=== PATIENT | female | born 1975 | race Caucasian/White ===

== ENCOUNTER 2016-07-18 15:40 | Emergency (ER) | payer BC ==
[2016-07-18 15:43] VITALS: BP 120/81; BMI 22.8
--- NOTE | 2016-07-18 15:56 | ED.ABDFE ---
HPI - Time seen Time seen: 15:45 - PCP Primary Care Physician: MICHELLE ORLANDO - HPI Comment HPI Comment: HISTORY KIDNEY STONE. PAIN GETTING WORSE. - Complaint Chief Complaint Doctors Comments: LEFT FLANK PAIN TIMES HOURS. Chief Complaint:: LEFT FLANK PAIN, POSSIBLE KIDNEY STONE, N/V - Nurses notes reviewed Nurses Notes Review: Yes - Source History Provided: Patient - Mode of arrival Mode of Arrival: Ambulatory - Timing Onset of Chief Complaint: 07/18/16 Came on: Suddenly - Duration Duration: Constant Duration: Days - Severity Severity: Moderate - Quality Quality: Sharp - Context Onset: Suddenly History of: Urolithiasis - Modifying Worsening Factors: Nothing Improving Factors: Nothing - Associated signs and symptoms Associated Signs and Symptoms: Nausea, Vomiting, Hematuria PMH - PMH Past Medical History: Yes Past Medical History: Kidney Stones Past Surgical History: Yes Surgical History: Hysterectomy, Other Past Surgical History Comment: BREAST IMPLANTS - Family History History of Family Medical Conditions: No - Social History Does patient currently use any type of tobacco product: No Have you used tobacco products in the last 12 months: No Type of Tobacco Use: None Does any household member use tobacco: No Alcohol Use: None Do you use any recreational Drugs:: No Lives With: Family Lives Where: Home - infectious screening In the last 2 months have you had wt loss of >10#?: NO Have you had fever, night sweats or hemotysis?: No Have you traveled outside the country in the last 6 months?: No Isolation: Standard ROS - Review of Systems Constitutional: No Symptoms Reported Eyes: No Symptoms Reported ENTM: No Symptoms Reported Respiratoy: No Symptoms Reported Cardiovascular: No Symptoms Reported Gastrointestinal/Abdominal: Abdominal Pain, Nausea, Vomiting Genitourinary: No Symptoms Reported Neurological: No Symptoms Reported Musculoskeletal: Back Pain, Back, Other (LT FLANK PAIN) Integumentary: No Symptoms Reported Hematologic/Lymphatic: No Symptoms Reported Endocrine: No Symptoms Reported All Other Systems: Reviewed and Negative PE - Vital Signs Vitals: Temperature 98.2 F Pulse Rate 87 Respiratory Rate 20 Blood Pressure 120/81 O2 Sat by Pulse Oximetry 99 - General Limitations: No Limitations General Appearance: In No Apparent Distress - Head Head Exam: Normal Inspection - Eyes Eye exam: Normal Appearance - ENT ENT Exam: Normal External Ear Exam - Neck Neck Exam: Normal Inspection - Chest Chest Inspection: Symmetric Chest Wall Rise - Respiratory Respiratory Exam: Normal Lung Sounds Bilat Respiratory Exam: Bilateral Clear to Auscultation - Cardiovascular Cardiovascular Exam: Regular Rate, Normal Rhythm, Normal Heart Sounds - Abdominal Exam Abdominal Exam: Normal Bowel Sounds, Soft, Tenderness - Rectal Rectal Exam: Deferred - Back Back Exam: (L) CVA Tenderness - Extremeties Extremities Exam: Normal Inspection - External Exam: Female: Deferred : Bimanual Exam (female): Normal Bimanual exam - Neurologic Neurological Exam: Alert, Oriented X3 - Psychiatric Psychiatric Exam: Normal Affect, Normal Mood - Skin Skin Exam: Normal Color MDM - Differential Diagnosis Differential Diagnosis- Considerations may include:: Gastritus/PUD, Ovarian cyst /torsion, Urinary obstruction, Urinary tract infection, Urolithiasis Course - Treatment Treatment: SEE ORDERS. PAIN IMPROVE WITH MEDS. - Education/Counseling Education/Counseling: Patient, Education Educated On: Treatment, Diagnosis, Needs for Follow Up ROR - Labs Reviewed Laboratory Results Reviewed?: Yes Result Diagrams: 07/18/16 16:06 07/18/16 16:06 Laboratory: WBC 13.7 X10^3/uL (3.6-10.0) H 07/18/16 16:06 RBC 5.04 X10^6/uL (3.5-5.4) 07/18/16 16:06 Hgb 14.3 g/dL (12.0-16.0) 07/18/16 16:06 Hct 41.9 % (36.0-47.0) 07/18/16 16:06 MCV 83.1 fL (80.0-100.0) 07/18/16 16:06 MCH 28.4 pg (27.0-34.0) 07/18/16 16:06 MCHC 34.2 g/dL (33.0-35.0) 07/18/16 16:06 RDW 12.7 % (11.6-16.5) 07/18/16 16:06 Plt Count 305 X10^3/uL (150.0-450.0) 07/18/16 16:06 Plt Count Comment Adequate (ADEQUATE) 07/18/16 16:06 MPV 8.5 fL (7.4-11.0) 07/18/16 16:06 Neut % 90.5 % (42.0-75.0) H 07/18/16 16:06 Lymph % 6.2 % (21.0-51.0) L 07/18/16 16:06 [place] % 3.0 % (0.0-13.0) 07/18/16 16:06 Eos % 0.1 % (0.9-2.9) L 07/18/16 16:06 Baso % 0.2 % (0.2-1.0) 07/18/16 16:06 Neut # 12.4 x10^3/uL (2.2-4.8) H 07/18/16 16:06 Lymph # 0.9 X10^3/uL (1.3-2.9) L 07/18/16 16:06 [place] # 0.4 x10^3/uL (0.3-0.8) 07/18/16 16:06 Eos # 0.0 x10^3/uL (0.0-0.2) 07/18/16 16:06 Baso # 0.0 X10^3/uL (0.0-0.1) 07/18/16 16:06 Absolute Nucleated RBC 0.0 /100WBC 07/18/16 16:06 Total Counted 100 07/18/16 16:06 Neutrophils % (Manual) 90 % (39-76) H 07/18/16 16:06 Band Neutrophils % 3 % (0-10) 07/18/16 16:06 Lymphocytes % (Manual) 5 % (13-43) L 07/18/16 16:06 Monocytes % (Manual) 2 % (4-9) L 07/18/16 16:06 Plt Morphology Comment Normal (NORMAL) 07/18/16 16:06 RBC Morphology Normal (NORMAL) 07/18/16 16:06 Sodium 142 mmol/L (136-145) 07/18/16 16:06 Corrected Sodium 143 mmol/L (136-145) 07/18/16 16:06 Potassium 4.3 mmol/L (3.5-5.1) 07/18/16 16:06 Chloride 105 mmol/L (98-107) 07/18/16 16:06 Carbon Dioxide 27.7 mmol/L (21-32) 07/18/16 16:06 BUN 11 mg/dL (7-18) 07/18/16 16:06 Creatinine 0.94 mg/dL (0.55-1.02) 07/18/16 16:06 Est GFR (MDRD) Af Amer > 60 (>60) 07/18/16 16:06 Est GFR (MDRD) Non-Af > 60 (>60) 07/18/16 16:06 Glucose 147 mg/dL (65-99) H 07/18/16 16:06 Calcium 9.3 mg/dL (8.5-10.1) 07/18/16 16:06 Corrected Calcium TNP 07/18/16 16:06 Total Bilirubin 0.20 mg/dL (0.2-1.0) 07/18/16 16:06 AST 18 Units/L (15-37) 07/18/16 16:06 ALT 31 Units/L (12-78) 07/18/16 16:06 Alkaline Phosphatase 93 Units/L (46-116) 07/18/16 16:06 Total Protein 8.0 g/dL (6.4-8.2) 07/18/16 16:06 Albumin 3.7 g/dL (3.4-5.0) 07/18/16 16:06 Globulin 4.3 g/dL (2.5-4.5) 07/18/16 16:06 Albumin/Globulin Ratio 0.9 Ratio (1.1-2.1) L 07/18/16 16:06 Specimen Type Clean catch urine 07/18/16 16:00 Urine Color Dark yellow (YELLOW) 07/18/16 16:00 Urine Appearance Slightly hazy (CLEAR) 07/18/16 16:00 Urine pH 7.0 (5.0 - 8.0) 07/18/16 16:00 Ur Specific [employer] 1.010 (1.000-1.030) 07/18/16 16:00 Urine Protein 1+ (NEGATIVE) 07/18/16 16:00 Urine Glucose (UA) Negative (NEGATIVE) 07/18/16 16:00 Urine Ketones Negative (NEGATIVE) 07/18/16 16:00 Urine Occult Blood 5+ (NEGATIVE) 07/18/16 16:00 Urine Nitrite Negative (NEGATIVE) 07/18/16 16:00 Urine Bilirubin Negative (NEGATIVE) 07/18/16 16:00 Urine Urobilinogen Normal (NORMAL) 07/18/16 16:00 Ur Leukocyte Esterase Negative (NEGATIVE) 07/18/16 16:00 Urine RBC Tntc /HPF (NEGATIVE) 07/18/16 16:00 Urine WBC 0-1 /HPF (NEGATIVE) 07/18/16 16:00 Ur Squamous Epith Cells Rare /HPF (NEGATIVE) 07/18/16 16:00 Amorphous Sediment Trace /HPF (NEGATIVE) 07/18/16 16:00 Urine Bacteria Trace /HPF (NEGATIVE) 07/18/16 16:00 Urine Mucus Rare /HPF (NEGATIVE) 07/18/16 16:00 Ur Culture Indicated? No/not indicated 07/18/16 16:00 - XRAY XRAY Interpreted by: Radiologist XRAY Findings: REPORT DISCUSS WITH PATIENT. - Diagnosis Discharge Problem: Left flank pain, Kidney stone - Discharge Plan Disposition: HOME, SELF-CARE Condition: Stable Prescriptions: Hydrocodone-Acetaminophen [[place] 5-325 mg] 1 tab PO Q6H PRN #15 tab PRN Reason: Ketorolac Tromethamine [Toradol Tab] 10 mg PO Q8H PRN #15 tab PRN Reason: Pain Tamsulosin HCl [Flomax] 0.4 mg PO DAILY #20 cap - Follow ups/Referrals Follow ups/Referrals: GLENIS ARDON [Primary Care Provider] - 3 days - Instructions Instructions: Hydronephrosis, Flank Pain, [id number], Kidney Stones, Easy-to- Read Additional Instructions: RETURN TO ED IF WORSE.
[2016-07-18] MEDS ORDERED: ZOFRAN INJ 4 MG VIAL IVP ONE (15:59)
[2016-07-18] MEDS ORDERED: TORADOL 30 MG VIAL IVP ONE (15:59)
[2016-07-18] MEDS ORDERED: NS 1000 ML 1,000 ML IV ONE (16:00)
[2016-07-18] MEDS ORDERED: NS 1000 ML 1,000 ML ONE (16:05)
[2016-07-18] MEDS ORDERED: ZOFRAN INJ 4 MG VIAL ONE (16:09)
[2016-07-18] MEDS ORDERED: TORADOL 30 MG VIAL ONE (16:10)
[2016-07-18 16:12] LABS: BASOPHILS % (AUTO) 0.2 % (0.2-1.0); EOSINOPHILS % (AUTO) 0.1 % (0.9-2.9); HEMATOCRIT 41.9 % (36.0-47.0); HEMOGLOBIN 14.3 g/dL (12.0-16.0); LYMPHOCYTES # (AUTO) 0.9 X10^3/uL (1.3-2.9); LYMPHOCYTES % (AUTO) 6.2 % (21.0-51.0); MEAN CORPUSCULAR HEMOGLOBIN 28.4 pg (27.0-34.0); MEAN CORPUSCULAR HGB CONC 34.2 g/dL (33.0-35.0); MEAN CORPUSCULAR VOLUME 83.1 fL (80.0-100.0); MEAN PLATELET VOLUME 8.5 fL (7.4-11.0); MONOCYTES # (AUTO) 0.4 x10^3/uL (0.3-0.8); NEUTROPHILS # (AUTO) 12.4 x10^3/uL (2.2-4.8); NEUTROPHILS % (AUTO) 90.5 % (42.0-75.0); PLATELET COUNT 305 X10^3/uL (150.0-450.0); RED BLOOD COUNT 5.04 X10^6/uL (3.5-5.4); RED CELL DISTRIBUTION WIDTH 12.7 % (11.6-16.5); WHITE BLOOD COUNT 13.7 X10^3/uL (3.6-10.0)
[2016-07-18 16:15] LABS: BILIRUBIN,URINE NEGATIVE (NEGATIVE); BLOOD/HEMOGLOBIN,URINE 5+ (NEGATIVE); GLUCOSE, URINE NEGATIVE (NEGATIVE); KETONES,URINE NEGATIVE (NEGATIVE); LEUKOCYTE ESTERASE ,URINE NEGATIVE (NEGATIVE); NITRITES,URINE NEGATIVE (NEGATIVE); PROTEIN,URINE 1+ (NEGATIVE); UROBILINOGEN,URINE NORMAL (NORMAL)
[2016-07-18 16:23] LABS: BAND NEUTROPHILS % 3 % (0-10); PLATELET MORPHOLOGY COMMENT NORMAL (NORMAL)
[2016-07-18] MEDS ORDERED: DEMEROL INJ IVP ONE (16:25)
[2016-07-18] MEDS ORDERED: DEMEROL INJ ONE (16:25)
[2016-07-18 16:27] LABS: APPEARANCE,URINE SLIGHTLY HAZY (CLEAR); BACTERIA,URINE TRACE /HPF (NEGATIVE); COLOR,URINE DARK YELLOW (YELLOW); RBC,URINE TNTC /HPF (NEGATIVE); SQUAMOUS EPITHELIAL CELL,UR RARE /HPF (NEGATIVE)
[2016-07-18 16:28] LABS: AMORPHOUS SEDIMENT,UR TRACE /HPF (NEGATIVE); MUCUS,URINE RARE /HPF (NEGATIVE)
--- NOTE | 2016-07-18 16:41 | CT ---
CT abdomen and pelvis without contrast Indication: Left flank pain Comparison: 11/09/2011 Technique: Multiple axial images of the abdomen and pelvis were obtained from the lung bases to the pubic symph ysis without the administration of IV contrast. Radiation dose reduction techniques were performed utilizing adjustment for MA/kVP based on patient body size. Findings: The the lung bases are clear. There is enlargement of the left hepatic dome hypoattenuating lesion m easuring approximately 2.6 x 2.2 cm on axial image 9 which has Hounsfield attenuation most consisten t with a cyst. The remaining liver, gallbladder, bile ducts and spleen are unremarkable given the li mitations of a noncontrast examination. The pancreas is normal. The right adrenal gland demonstrates nodular thickening with decreased attenuation similar to prior examination consistent with an adeno ma. Left adrenal gland is normal. The right kidney demonstrates multiple punctate nonobstructing sto luann. The left kidney demonstrates mild hydroureteronephrosis secondary to an approximate 4 mm stone within the distal left ureter on axial image 82. Punctate nonobstructing stone within the upper pole left kidney. Upper GI tract demonstrates no evidence of mass or obstruction. Urinary bladder is nor mal. No pelvic or adnexal mass. The rectum and colon are within normal limits. The appendix is rachel l. No pelvic free fluid or adenopathy. Abdominal aorta is normal in caliber. Review of bone windows demonstrates no acute osseous abnormality. Impression: 1.An approximate 4 mm stone within distal left ureter causes mild left hydroureteronephrosis. 2. Punctate bilateral nonobstructing nephrolithiasis. 3. Enlarging hypoattenuating lesion within the left hepatic dome has Hounsfield attenuation most con sistent a cyst. 4. Right adrenal gland adenoma. Reported By:
[2016-07-18 17:12] LABS: ALANINE AMINOTRANSFERASE 31 Units/L (12-78); ALBUMIN 3.7 g/dL (3.4-5.0); ALKALINE PHOSPHATASE 93 Units/L (46-116); ASPARTATE AMINO TRANSFERASE 18 Units/L (15-37); BLOOD UREA NITROGEN 11 mg/dL (7-18); CALCIUM 9.3 mg/dL (8.5-10.1); CARBON DIOXIDE 27.7 mmol/L (21-32); CHLORIDE 105 mmol/L (98-107); COR NA(FOR HYPERGLY) 143 mmol/L (136-145); CREATININE 0.94 mg/dL (0.55-1.02); GLUCOSE 147 mg/dL (65-99); SODIUM 142 mmol/L (136-145); eGFR BLACK RACES > 60 (>60); eGFR NON BLACK RACES > 60 (>60)
[2016-07-18] MEDS ORDERED: FLOMAX PO ONE (17:34)
== END 2016-07-18 17:44 | disposition home or self-care (01) ==
LOC: ER 15:48
DX: N20.0 Calculus of kidney (principal); R10.84 Generalized abdominal pain; K76.89 Other specified diseases of liver; E27.9 Disorder of adrenal gland, unspecified
CPT/HCPCS: 36415; 74176; 80053; 81001; 85025; 96365; 96374; 96375; 99283; A4222; J1885; J2175; J2405